=== PATIENT | female | born 2005 | race Caucasian/White ===

== ENCOUNTER 2024-10-03 11:32 | Day surgery (SDC) | payer BC, SELFPAY ==
--- NOTE | 2024-10-03 11:48 | SUR.PREOP ---
Initial surgical checklist was documented blank on error,not d/t high blood pressure.
--- NOTE | 2024-10-03 12:19 | PRE.ANES_ITS ---
ASA Classification* ASA Classification ASA Classification: 2 Assessment & Plan Anesthesia* Anesthesia Assessment Anesthesia Assessment: Discussed sedation and/or anesthesia options, risks, benefits, and alternatives with patient/parents/legal guardian/POA. Questions invited. The patient/parents/legal guardian/POA seems to understand and agrees to proceed with anesthesia plan. Reviewed the physical assessment, medical history, allergy history and patient home medications list prior to surgery/procedure/anesthetic and documented any changes. Performed airway and anesthesia risk assessments. Anesthesia Type Anesthesia Type: MAC Anesthesia Focused Assessment* Airway Assessment Mouth opens: >3 cm Mallampati Score: II Focused Labs Anesthesia Preop lab: CBC CHEMISTRY COAG Pre-Assessment Diagnosis/Proposed Procedure Planned Operative Procedure(s): D&C, Wart Removal Anesthesia History Anesthesia History - agricultural lender: Anesthesia History - agricultural lender Hx Hospitalization Any Problems With Anesthesia Cholinesterase deficiency You/Your Family Experience fever (hyperthermia) with Relationship Recent Exposure to Contagious Disease Does patient have nerve stimulator Patient instructed to have device shut off --Does patient have Pacemaker or ICD? When Was Last Pacemaker Check QUESTION #4 FULL TEXT: You/Your Family Experience fever (hyperthermia) with Anesthesia Last Oral Intake Last Oral intake: Last Oral Intake NPO since Meds taken in AM with sips of water? Meds patient instructed to take am of surgery PONV PONV - agricultural lender: PONV - agricultural lender Female HX of Motion Sickness HX of N/V After Surgery Non-Smoker Duration of Surgery greater than 60 minutes Number of Risk Factors PONV Score Height & Weight Height & Weight: Anesthesia: Height & Weight Height 5 ft 4 in 09/30/24 11:28 Respiratory Assessment Respiratory Assessment - agricultural lender: Respiratory Tract Infection Hx - agricultural lender Hx Respiratory Tract Infection STOP Sleep Apnea STOP Sleep Apnea - agricultural lender: STOP Sleep Apnea - agricultural lender Hx Hypertension Hx Sleep Apnea CPAP BIPAP Do you snore loudly (louder than talking or can be heard Do you often feel tired/ fatigued/ sleepy during daytime? Has anyone observed you stop breathing during sleep? STOP Results QUESTION #5 FULL TEXT : Do you snore loudly (louder than talking or can be heard through closed doors)? 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 Specify any problems Hx of Preganancy in last 3 Months Nurse Filling Out Transfusion & Questions: Date: Time: Patient unable to answer at this time (ie. confused, unrespo /Reproduction History /Reproductive History - agricultural lender: /Reproductive Hx- agricultural lender Hx Now Gestational Age (in weeks): EDC: Hx Hx Para Hx Section SAB Yes 09/30/24 11:41 Active Medications Active Medications: Current Medications Generic Name Dose Route Start Last Admin Trade Name Freq PRN Reason Stop Dose Admin Silver Sulfadiazine 50 applic 10/03/24 11:30 Silver Sulfadiazine 1% Crm 50 Gm Bottle TOPICAL X1 DOM PFSH Medical History Seasonal allergies Arthritis Frequent headaches Rheumatoid arthritis Home Medications ?Medication ?Instructions ?Recorded ?Last Taken ?Type abatacept 125 mg/mL subcutaneous 125 mg subcut .monthl y arthritis 10/03/24 Unknown History auto-injector (Orencia ClickJect) Allergy/AdvReac Type Severity Reaction Status Date / Time No Known Allergies Allergy Verified 10/03/24 12:18 Family History Grandmother Arthritis Skin cancer Grandfather Colon cancer Uncle Hypertension Mother Hyperlipidemia Hypertension Father Diabetes Type 2 Sister Heart murmur Surgical History H/O tooth extraction Social History adopted: No household members: family current occupational status: employed 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 occupational exposures/hazards: No pets and animals: Yes (Avoid litterbox) pets and animals: cat(s) and dog(s) history of recent travel: No sexually active: Yes Smoking Status: Never smoker alcohol intake: never substance use type: does not use well-balanced diet: about half the time caffeine: No eating out: 1-3 times/week during the past year weight has: remained stable what type of physical activity do you participate in: none kevin/mu-ism: None seatbelt use: always do you feel safe at home: Yes additional social history: FOB- Javier Review of Systems (Anesthesia) ROS Narrative System reviewed and no additional complaints, except as documented.
[2024-10-03 12:22] VITALS: BP 109/73; PULSE 79; RESP 12; TEMP 37.6; O2SAT 99; BMI 22.2
[2024-10-03 12:43] LABS: Hematocrit 39.1 % (37-47); Hemoglobin 12.9 g/dL (12.0-15.0); Mean Corpuscular Hgb 28.7 pg (27.0-32.0); Mean Corpuscular Volume 86.9 fL (81-99); Mean Platelet Vol. 9.5 fl (6.2-12.0); Platelet Count 339 K/mm3 (150-450); RBC Distribution Width SD 40.8 fl (35.1-43.9)
--- NOTE | 2024-10-03 12:46 | HP.PCM_ITS ---
History and Physical Intake Vital Signs 09/30/2510:28 Height 5 ft 4 in Weight: 133 lb 2 oz BMI 22.8 BP 124/76 H Intake Visit Reasons: New OB, LMP 07/23, ROE 04/29/25 Chief Complaint: New OB Is patient in pain?: No Allergies No Known Allergies Allergy (Unverified 09/30/24 11:29) Medications ?Medication ?Instructions ?Recorded ?Confirmed ?Type PNV 153-FA 400 mcg-om3 35 mg-dha tab PO 09/15/24 09/30/24 History 25 mg-epa 5 mg-fish oil chew tablet ondansetron 4 mg disintegrating 4 mg PO Q6H PRN nausea and 09/30/2409/17 Rx tablet vomiting #90 tabs Last Menstrual Period: 07/23/24 : Yes PFSH PFSH Medical History Seasonal allergies Arthritis Frequent headaches Rheumatoid arthritis Surgical History H/O tooth extraction Family History Grandmother Arthritis Skin cancerGrandfather Colon cancerUncle HypertensionMother Hyperlipidemia HypertensionFather Diabetes Type 2Sister Heart murmur Social History adopted: No household members: family current occupational status: employed 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 occupational 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/hazards: No pets and animals: Yes (Avoid litterbox) pets and animals: cat(s) and dog(s) history of recent travel: No sexually active: Yes Smoking Status: Never smoker alcohol intake: never substance use type: does not use well-balanced diet: about half the time caffeine: No eating out: 1-3 times/week during the past year weight has: remained stable what type of physical activity do you participate in: none kevin/congregational: None seatbelt use: always do you feel safe at home: Yes additional social history: FOB- Javier History 1 Elective abortions Hx Para 0 Spontaneous abortions Hx # Term Pregnancies Ectopic pregnancies Hx # Pregnancies Multiple births # of living children HPI New OB, LMP 07/23, ROE 04/29/25 Details: EDD REDDY is a 18 year old who presents for New OB visit. Has been feeling nausous-no bleeding or cramping. nonviable 9 week IUP seen no color doppler and no fht seen. OB Visit ROE Calculator Estimated Delivery Date Method Current WG Current Estimate 04/29/25 LMP (Certain) 9w 6d Comments: HIV: Urine Culture: Sequential Screen: NIPT Screen: Estimated Due Date: 04/29/25 Expected Delivery Route/Plan Labor Preferences- CB/BF classes: [] labor support person: [] labor intervention preferences: [] pain management options preferred: [] cut cord/dad catch: [] : [] PP control planned: [] discussed possible routes of delivery and associated risks: [] special requests: [] Specific Issue/Plans Covid status: [] Flu vaccine: [] Tdap vaccine: [] Rhogam: [] LARC form signed: [] Problem list reviewed and updated with the most current plan of care details and appropriate orders placed. Relevant counseling for the gestational age provided. Continue routine care and follow up unless otherwise noted in visit notes/problem list details Initial Weight: 133 lb Date -?-?-?-?-?-?-?-?-?-?-?-?- EGA Weight BP Urine Prot -?-?-?-?-?-?-?-?-?-?-?-?- Glucose FHR FuHt Pres Dilation -?-?-?-?-?-?-?-?-?-?-?-?- Effaced St Visit Note 09/30/24-?-?-?-?-?-?-?-?-?-?-?-?- 9w 6d 133 lb 2 oz(+2 oz) 124/76 -?-?-?-?-?-?-?-?-?-?-?-?- -?-?-?-?-?-?-?-?-?-?-?-?- SM assisted with scan-confirmed SAB with scan. measuring 9.0 weeks. SM assisted with scan-confirmed SAB with scan. measuring 9.0 weeks-CRL 2.1. Menstrual History Last Menstrual Period: 07/23/24 Reported LMP: definite Normal amount/duration: No (construction director than normal, shorter) Frequency in days: irregular 30-37 On hormonal BC at conception: No hCG+: 09/04/24 Antepartum Record Genetic Screening: Congenital Heart Defect: Patient (sister-murmur, small hole, no surgery), Neural Tube Defect: Other, Hemoglobinopathy Or Carrier: Other, Cystic Fibrosis: Other, Chromosome Abnormality: Other, Ben-Sachs: Other, Hemophilia: Other, Intellectual Disability/Autism: Other, Recurrent Loss/Stillbirth: Other, Other Structural Defect: Other, Other Genetic Disease: Other and Maternal Metabolic Disorder: Other Infection History: Live with someone with TB or Exposed to TB: No, Patient or Partner has history of Genital Herpes: No, Rash or Viral illness since last mentrual period: No, Prior GBS-Infected child: No, History of STD: No, HIV Infection: No, History of Hepatitis: No, Recent travel outside of [place]: No, Concern for hepatitis exposure: No, Varicella immune: Yes (immune-vaccine) and Covid Vaccinated: No Medical History Medical History: Positive: Auto-immune disorder (RA) and Operations/hospitalizations (teeth extracted) and Negative: Diabetes, Hypertension, Heart disease, Kidney disease/UTI, Neurologic/epilepsy, Psychiatric, Depression/ depression, Hepatitis/liver disease, Varicosities/phlebitis, Thyroid dysfunction, Trauma/domestic violence, History of blood transfusions, D (Rh) Sensitized, Pulmonary (e.g.,TB,Asthma), Seasonal allergies, Drug/latex allergies/reactions, Breast, Plate Drying Machine Tender surgery, Anesthetic complications, History of abnormal pap, Uterine anomaly/jerry, Infertility, Anti- retroviral treatment, Relevant family history (See PFSH) and Other (Wt unknown- will weigh at appt.) ACOG First Trimester First Trimester: Desire for , Alcohol, Tobacco Cessation, Illicit/Recreational Drug/Substance Use, Intimate Partner Violence, Barriers to care, Anticipated Course of Care, Use of Any medications, Sexual activity, Exercise, Dental Care, Sauna/Hot tub use, Seat Belt use, Childbirth classes/Hospital facilities, , Travel, Indications for Ultrasound and Screening for Aneuploidy; Discussed Unstable Housing, Discussed Communication Barriers, Discussed Environmental/Work Hazards and Discussed Toxoplasmosis Precations Second Trimester Second Trimester: Signs and Symptoms of Labor, Selecting a care provider, Reproductive Life Planning & Contreception, Care Planning, Depression/Anxiety and Intimate Partner Violence; Discussed Tobacco Cessation Third Trimester Third Trimester: Pain Management Plans, Labor support person(s), Immediate Larc, Signs and Symptoms of Preeclampsia, Feeding Yes , Education and Family Medical Leave or Disability Forms ROS Const Reports system reviewed and no additional complaints, except as documented, Denies fatigue, Denies headache(s) and Denies lethargy ENT Denies headache(s) Card Reports system reviewed and no additional complaints, except as documented Resp Reports system reviewed and no additional complaints, except as documented GI Reports system reviewed and no additional complaints, except as documented, Denies abdominal pain, Denies constipation, Denies cramping, Denies diarrhea and Denies dyspepsia Reports system reviewed and no additional complaints, except as documented, Denies abnormal vaginal bleeding, Denies difficulty voiding, Denies dyspareunia and Denies dysuria Musc Reports system reviewed and no additional complaints, except as documented Skin/Breast Reports system reviewed and no additional complaints, except as documented Neuro Yes system reviewed and no additional complaints, except as documented and No headache(s) Psych Reports system reviewed and no additional complaints, except as documented, Denies anhedonia and Denies anxiety Endo Reports system reviewed and no additional complaints, except as documented and Denies fatigue Exam Const General: cooperative, healthy appearing and comfortable Neck Neck: normal visual inspection and full ROM Chest Chest palpation & inspection: normal inspection of the chest Breast inspection: normal inspection of the breasts and normal inspection of the axillae Breast palpation: normal palpation of the breasts and normal palpation of the axillae Resp Effort & Inspection: normal respiratory effort and able to speak in complete sentences GI Inspection: normal to inspection Palpation: soft External Female Exam: normal external appearance and normal appearance of the urethra Urethra: normal appearance of the urethra Skin General: no rashes or lesions noted Neuro General: patient alert, patient awake and patient oriented x3 Extrem General: normal to inspection and full ROM Psych Appearance: grossly normal and well kempt Mental Status: mental status grossly normal Mood: congruent mood Affect: normal affect Speech and Movement: speech and movement normal Thought Process: normal Thought Content: normal Coding Level of Care Code Off vis,est,level 4 Diagnoses Supervision of high-risk O09.90 9 weeks gestation of Z3A.09 Weeks of gestation: 9 weeks Rheumatoid arthritis with positive rheumatoid factor, involving unspecified site M05.9 Rheumatoid arthritis location: unspecified site Rheumatoid factor presence: with rheumatoid factor Segmental and somatic dysfunction of thoracic region M99.02 Segmental and somatic dysfunction of lumbar region M99.03 Segmental and somatic dysfunction of cervical region M99.01 Missed O02.1 Assessment and Plan Assessment and Plan (1) Supervision of high-risk : Status: Acute Comment: , ROE 04/29/25, FOB Javier (2) : Status: Acute Qualifiers: Weeks of gestation: 9 weeks Qualified Code(s): Z3A.09 - 9 weeks gestation of Comment: discussed genetic & carrier testing-undecided (3) Rheumatoid arthritis: Status: Chronic Qualifiers: Rheumatoid arthritis location: unspecified site Rheumatoid factor presence: with rheumatoid factor Qualified Code(s): M05.9 - Rheumatoid arthritis with rheumatoid factor, unspecified (4) Segmental and somatic dysfunction of thoracic region: Status: Acute (5) Segmental and somatic dysfunction of lumbar region: Status: Acute (6) Segmental and somatic dysfunction of cervical region: Status: Acute (7) Missed : Status: Acute Comment: consult Orders: Orders CBC W/Diff, Automated 09/15/24 O09.90 - Supervision of high risk , unspecified, unspecified trimester HIV - [facility] 09/15/24 O09.90 - Supervision of high risk , unspecified, unspecified trimester Type & Screen 09/15/24 O09.90 - Supervision of high risk , unspecified, unspecified trimester Rubella IgG 09/15/24 O09.90 - Supervision of high risk , unspecified, unspecified trimester Hepatitis C Antibody 09/15/24 O09.90 - Supervision of high risk , unspecified, unspecified trimester Hepatitis B Surface Antigen 09/15/24 O09.90 - Supervision of high risk , unspecified, unspecified trimester Culture, Urine 09/15/24 O09.90 - Supervision of high risk , unspecified, unspecified trimester Syphilis Antibodies 09/15/24 O09.90 - Supervision of high risk , unspecified, unspecified trimester Chlamydia/GC QUINTON aptima 09/15/24 O09.90 - Supervision of high risk , unspecified, unspecified trimester Medications: New ondansetron 4 mg PO Q6H PRN 90 tabs 4RF nausea and vomiting O21.9 - Vomiting of , unspecified After discussing the patient's diagnosis and treatment plan options, patient wishes to proceed with surgical management. I have discussed with the patient the risks, benefits, and alternatives of the procedure which include but are not limited to risks of anesthesia, bleeding, infection, possible damage to bowel, bladder, or surrounding vasculature which could lead to additional surgery to evaluate any complications. Patient agrees to procedure and wishes to proceed. ACOG/uptodate references given for additional information regarding procedure.
[2024-10-03 12:52] LABS: Scan Indicated on CBC? Y/N NO
--- NOTE | 2024-10-03 13:05 | POC_PTH ---
PATIENT: EDD REDDY LOC: [facility] [place] U#:[id number] AGE/SX: 18/F ROOM: RE10/03/[address]: Dr. Nita Snow MD : 2005 BED: DIS: 10/03/2024 SPEC #: [id number] RECD: 10/03/24 18:12 STATUS: WAYNE REQuinton #: [id number] SAMMIE: 10/03/24 13:[address]: Nita Snow DEPT: SURGICAL PATHOLOGY RECD BY: Niyah Mcclain ENTERED: 10/04/24 09:37 SP TYPE: PROD CONC OTHR DR: Dr. Divine Aaron MD Tissues: A - Product of conception, NOS B - Perirectal region Procedures: Surgery Specimen Level IV HEADER OPERATION: D&C, suction, and genital wart removal PRE-OP DIAGNOSIS: Missed TISSUE SUBMITTED: A- Products of conception, B- Perirectal genital warts MICROSCOPIC DIAGNOSIS A. Products of conception, dilation and curettage: Decidua, gestational endometrium and immature chorionic villi (products of conception) clinically missed . B. Perirectal genital wart, excision: Consistent with condyloma. SJ. 10/05/2024 MICROSCOPIC DESCRIPTION Slides are reviewed. GROSS DESCRIPTION A. Received in fixative is one container labeled with the patient's name and designated Products of conception. The specimen consists of a curetting chamber in which there are numerous fragments of frothy-red tissue aggregating to approximately 8cm. Definitive parts are not identified. There are blood clots and roche tissue within and spongy material. Maori Liaison Adviser sections are submitted in three cassettes. B. Received in fixative is one container labeled with the patient's name and designated Perirectal genital warts. The specimen consists of a solitary polypoid appearing tissue fragment with the appearance of skin measuring 1cm in length, 5mm in width and in height approximately 8mm. Surgical margins are inked. The two smaller end sections represent the end margins. The specimen is serially sectioned and submitted in one cassette. A total of five sections, one cassette. JAIMIE. 10/04/2024 TC:5 CPT:75034n8
--- NOTE | 2024-10-03 13:28 | OP.PCM_ITS ---
Problems Associated Problem List Diagnoses (1) Genital warts: (2) Missed : Procedures Urinary/Genital 52xxx-59xxx: 30710 Surg Trtmt missed Ab, 1TM Operative Report (Standard) Operative Information Date of Procedure: 10/03/24 Pre-Operative Diagnosis: see problem list comments Post-Operative Diagnosis: same Surgery/Procedure Performed: suction dilation and curettage removal genital wart automobile sales representative: No Type of Anesthesia: IV Sedation and Local RN Documented Start/Stop Times: Operation Date: 10/03/24 13:05 Case Time Into Pre-Op 10/03/24 11:46 Procedure Start Time: 13:39 Procedure Stop Time: 14:00 Select all DRAINS/GRAFTS/IMPLANTS that apply: None Estimated Blood Loss: 250 Specimen collected: Yes Description of specimen(s) removed: retained POC Description of surgery: Patient was taken to the operating room and placed under MAC local anesthesia. She was prepped and draped in the normal sterile fashion the dorsal lithotomy position. Bladder was drained of clear urine and anterior lip of the cervix was grasped and the uterus sounded to 10 cm. Cervix was progressively dilated to allow passage of a 10mm suction curette. Progressive passes were made removing the retained products of conception without complication. Sharp curettage confirmed complete removal of the retained products. All instruments were removed from the vagina and excellent hemostasis was noted, then the perirectal area where the genital wart was located on the posterior aspect of the buttox was injected with lidocaine. the genital wart grasped and the base cauterized with the bovie to remove the genital wart without complication and the area oversewn with 3-0 vicryl rapide interrupted sutures. silvadene applied and the patient was taken to recovery in stable condition. Surgical Findings: 2 cm perirectal genital wart and 9 week missed ab Complications Complications: No
[2024-10-03] MEDS: Cefazolin 2 GM in 0.9% Normal Saline (100mL Bag) 100 ML IV (13:39)
[2024-10-03] MEDS: Lidocaine 1% /Epi 1:100 (20ml) 20 ML Vial (13:40)
--- NOTE | 2024-10-03 14:04 | DCINST_ITS ---
Discharge Instructions Diet Discharge Diet: No restrictions DC O2, CPAP, BIPAP needs Home O2 Discharge instructions: No Dressing / Incision Discharge Activity: Return to Normal Activity, May Shower and May Take a Tub Bath (after 1 week) May resume sexual activity in: 1-2 weeks Weight Bearing Status: Weight bearing as tolerated Lifting Restrictions: none Dressing / Incision Call your doctor if you observe: Fever of 101 or Higher, Using more than 1 pad per hour, Shortness of breath and Uncontrolled pain Follow Up Care Please Follow Up With: Nita Snow MD When: Call [phone] to schedule appointment. Test Results: Test results from this visit will be discussed in further detail at your follow- up appointment, if applicable. Discharge Plan Admission Attending Provider: Nita Snow Primary Care Provider: Divine Aaron Instructions Print Language: Bahraini Discharge Orders/Prescriptions Prescriptions: New oxycodone-acetaminophen [Percocet] 5-325 mg tablet 1 tab PO Q4H PRN (Reason: pain) 7 Days Qty: 10 0RF naproxen 500 mg tablet 500 mg PO BID PRN PRN (Reason: Pain) Qty: 30 1RF No Action Orencia ClickJect 125 mg/mL auto-injector 125 mg SUBCUT .monthly Patient Comments: [NO ORIGINAL SIG] Referrals / Follow Up: Divine Aaron MD [Primary Care Provider] - Disposition Disposition (needs filled in before D/C Order can be placed): Home, Self Care
[2024-10-03 14:08] VITALS: BP 109/73; BP 113/67; PULSE 75; RESP 16; TEMP 36.3; O2SAT 100
[2024-10-03 14:10] VITALS: BP 109/73; BP 111/66; BP 113/67; PULSE 81; PULSE 83; RESP 16; RESP 20; TEMP 36.3; O2SAT 100
--- NOTE | 2024-10-03 14:10 | PCM.POST.ANE ---
Anesthesia: Postop Eval I Current Vital Signs Temperature: 97.3 F Pulse Rate: 83 Blood Pressure: 113/67 Respiratory Rate: 20 Pulse Ox: 100 (pt on room air ) Assessment Airway patent: Yes Spontaneous unlabored respirations: Yes nausea: No Vomiting: No Anesthesia Complication: No Fluid Hydration Crystalloid volume administer (ml): 40 Total IV fluid infused: 40 Progress Note Anesthesia document: Postop Eval 1 completed: Yes
[2024-10-03 14:15] VITALS: BP 106/56; BP 109/73; PULSE 79; RESP 16; O2SAT 100
--- NOTE | 2024-10-03 14:18 | POSTOPAN2_ITS ---
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 Spontaneous unlabored Yes 10/03/24 14:10 MOTORCYCLE SUBASSEMBLY [email or web address] respirations Mental status nausea No 10/03/24 14:10 MOTORCYCLE SUBASSEMBLY [email or web address].[email or web address] Vomiting No 10/03/24 14:10 MOTORCYCLE SUBASSEMBLY [email or web address] Anesthesia Postop Eval I: Fluid Summary Crystalloid volume administer 40 10/03/24 14:10 MOTORCYCLE SUBASSEMBLY [email or web address] (ml) Colloids volume administered ( ml) Blood Product volume administered (ml) Total IV fluid infused 40 10/03/24 14:10 MOTORCYCLE SUBASSEMBLY [email or web address] Anesthesia Postop Eval I: Summary Notes Anesthesia Complication No 10/03/24 14:10 MOTORCYCLE 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
--- NOTE | 2024-10-03 14:18 | PCM.POSTANE2 ---
Anesthesia Postop Eval I Sum Postop Eval Completion status Anesthesia document: Postop Eval 1 completed: Yes Anesthesia Postop Eval I Summary Anesthesia Postop Eval I Summary: Anesthesia Postop Eval I: Assessment Summary Airway patent Yes 10/03/24 14:10 [email or web address] Spontaneous unlabored Yes 10/03/24 14:10 [email or web address] respirations Mental status nausea No 10/03/24 14:10 [email or web address] Vomiting No 10/03/24 14:10 [email or web address] Anesthesia Postop Eval I: Fluid Summary Crystalloid volume administer 40 10/03/24 14:10 [email or web address] (ml) Colloids volume administered ( ml) Blood Product volume administered (ml) Total IV fluid infused 40 10/03/24 14:10 [email or web address] Anesthesia Postop Eval I: Summary Notes Anesthesia Complication No 10/03/24 14:10 [email or web address] Anesthesia Complication Comment: Post-operative progress note Anesthesia: Postop Eval II Evaluation Mental status: Awake Pain Level: 0 nausea: No Vomiting: No
[2024-10-03 14:20] VITALS: BP 109/73; BP 112/68; PULSE 90; RESP 18; TEMP 36.2; O2SAT 100
[2024-10-03 15:07] VITALS: BP 109/73
== END 2024-10-03 15:21 | disposition home or self-care (01) ==
LOC: SDC 11:39 → AC 11:45
PROVIDERS: PCP Pediatrics; Referring Provider Obstetrics & Gynecology; Visit Provider Obstetrics & Gynecology
PROC: (CPT 59820; principal; 2024-10-03 12:50)
DX: O02.1 Missed abortion (principal); O98.311 Other infections with a predominantly sexual mode of transmission complicating pregnancy, first trimester; A63.0 Anogenital (venereal) warts
CPT/HCPCS: 59820; 56501; 01965; 85027; 86850; 86900; 86901; 88305; A4216

== ENCOUNTER → 2024-11-03 | Outpatient (CLI) | payer BC, SELFPAY ==
[2024-11-03 18:08] LABS: hCG Titer Quant., Serum 16 mIU/mL (<9 non-preg)
== END | disposition home or self-care (01) ==
PROVIDERS: PCP Pediatrics; Referring Provider Obstetrics & Gynecology; Visit Provider Obstetrics & Gynecology
DX: Z32.01 Encounter for pregnancy test, result positive (principal)
CPT/HCPCS: 36415; 84702

== ENCOUNTER → 2024-11-05 | Outpatient (CLI) | payer BC, SELFPAY | END | disposition home or self-care (01) | LOC: LAB 15:30 | PROVIDERS: PCP Pediatrics; Visit Provider Obstetrics & Gynecology | DX: Z00.00 Encounter for general adult medical examination without abnormal findings (principal) ==

== ENCOUNTER → 2024-11-11 | Outpatient (CLI) | payer BC, SELFPAY ==
[2024-11-11 17:54] LABS: hCG Titer Quant., Serum 10 mIU/mL (<9 non-preg)
== END | disposition home or self-care (01) ==
PROVIDERS: PCP Pediatrics; Referring Provider Obstetrics & Gynecology; Visit Provider Obstetrics & Gynecology
DX: O36.80X0 Pregnancy with inconclusive fetal viability, not applicable or unspecified (principal); Z3A.00 Weeks of gestation of pregnancy not specified
CPT/HCPCS: 36415; 84702

== ENCOUNTER → 2024-11-18 | Outpatient (CLI) | payer BC, SELFPAY ==
[2024-11-18 16:57] LABS: hCG Titer Quant., Serum 5 mIU/mL (<9 non-preg)
== END | disposition home or self-care (01) ==
PROVIDERS: PCP Pediatrics; Referring Provider Nurse Practitioner Women's Health; Visit Provider Nurse Practitioner Women's Health
DX: O02.1 Missed abortion (principal)
CPT/HCPCS: 36415; 84702